=== PATIENT | male | born 1995 | race Caucasian/White ===

== ENCOUNTER 2018-07-05 04:35 | Emergency (ER) | payer BC, OTHER ==
--- NOTE | 2018-07-05 05:07 | EDM.PDOC ---
ED HPI GENERAL MEDICAL PROBLEM - General Chief Complaint: Chest Pain Stated Complaint: CHEST PAIN Time Seen by Provider: 07/05/18 04:50 Source of Information: Reports: Patient, RN Notes Reviewed - History of Present Illness INITIAL COMMENTS - FREE TEXT/NARRATIVE: 23-year-old male with achy discomfort left lateral chest off-and-on for the past week or so. Usually just lasts for a few seconds to up to maybe a half minute or so at a time. Not radiated to the shoulder or arm. He is not short of breath. No cough fever or chills. No known history for diabetes hypertension or heart problems. He does smoke but did quit just 3 days ago to see if that would help. When asked about caffeine he states he does work at [employer] and does drink a lot of caffeinated soda. Left Chest Pain Score (Numeric/FACES): 3 - Related Data Allergies Allergy/AdvReac Type Severity Reaction Status Date / Time amoxicillin Allergy Swollen Verified 07/05/18 04:40 Tongue cefaclor [From Ceclor] Allergy Swollen Verified 07/05/18 04:40 Tongue Home Meds: Home Meds . [No Known Home Meds] 07/05/18 [History] Past Medical History HEENT History: Reports: Impaired Vision Other HEENT History: Wears glasses Social & Family History - Tobacco Use Smoking Status *Q: Former Smoker Years of Tobacco use: 3 Packs/Tins Daily: 0.5 Used Tobacco, but Quit: Yes Month/Year Tobacco Last Used: 07/03/18 - Recreational Drug Use Recreational Drug Use: Yes Drug Use in Last 12 Months: No Recreational Drug Type: Reports: Cocaine Recreational Drug Use Frequency: Not Used In Over 6 Months ED ROS GENERAL - Review of Systems Review Of Systems: See Below Constitutional: Denies: Fever, Chills, Diaphoresis HEENT: Reports: No Symptoms Respiratory: Denies: Shortness of Breath, Cough Cardiovascular: Reports: Chest Pain GI/Abdominal: Denies: Abdominal Pain, Nausea, Vomiting Musculoskeletal: Denies: Neck Pain, Shoulder Pain, Arm Pain Skin: Reports: No Symptoms Neurological: Reports: No Symptoms ED EXAM, GENERAL - Physical Exam Exam: See Below General Appearance: Alert, No Apparent Distress Throat/Mouth: Normal Inspection Head: No: Facial Swelling Neck: Supple, Full Range of Motion Respiratory/Chest: No Respiratory Distress, Lungs Clear, Normal Breath Sounds, Chest Non-Tender Cardiovascular: Regular Rate, Rhythm, Systolic Murmur (Mild) Peripheral Pulses: 1+: Carotid (R), Brachial (L), Brachial (R), Radial (L), Radial (R), Femoral (L), Femoral (R), Popliteal (L), Popliteal (R), Posterior Tibial (L), Posterior Tibial (R), Dorsalis Pedis (L), Dorsalis Pedis (R) Extremities: Normal Inspection Neurological: Alert, Oriented, No Motor/Sensory Deficits Skin Exam: Warm, Dry, Normal Color Course - Vital Signs Last Recorded V/S: Last Vital Signs Temp 97.9 F 07/05/18 04:40 Pulse 95 07/05/18 04:40 Resp 20 07/05/18 04:40 BP 180/88 H 07/05/18 04:40 Pulse Ox 99 07/05/18 04:40 - Orders/Labs/Meds Orders: Active Orders 24 hr Category Date Time Status EKG Documentation Completion [RC] STAT Care 07/05/18 05:10 Active Departure - Departure Time of Disposition: 05:03 Disposition: Home, Self-Care 01 Condition: Fair Clinical Impression: Atypical chest pain Instructions: Nonspecific Chest Pain, [id number] Referrals: Ronny Lomeli MD [Primary Care Provider] - Forms: ED Department Discharge Additional Instructions: Continue to stop smoking, stop or at least strongly reduced her soda intake, try eat a healthy diet, consider regular exercise program. Cardiac echocardiogram has been ordered. The order has been sent to radiology, they will be calling you with the time to come in and get that done. Follow up with your regular medical provider or with a provider at our [facility] medical clinic in about 5-7 days for results. - My Orders Last 24 Hours: My Active Orders 07/05/18 05:10 EKG Documentation Completion [RC] STAT - Assessment/Plan Last 24 Hours: My Active Orders 07/05/18 05:10 EKG Documentation Completion [RC] STAT
== END 2018-07-05 05:10 | disposition home or self-care (01) ==
LOC: JD.ED 04:35
DX: R07.89 Other chest pain (principal); Z88.1 Allergy status to other antibiotic agents; Z88.8 Allergy status to other drugs, medicaments and biological substances; Z87.891 Personal history of nicotine dependence
CPT/HCPCS: 93005; 99285-25

== ENCOUNTER 2018-08-08 21:57 | Emergency (ER) | payer OTHER ==
--- NOTE | 2018-08-08 22:35 | EDM.PDOC ---
ED HPI GENERAL MEDICAL PROBLEM - General Chief Complaint: Chest Pain Stated Complaint: CHWEST PAIN Time Seen by Provider: 08/08/18 22:21 Source of Information: Reports: Patient, RN Notes Reviewed - History of Present Illness INITIAL COMMENTS - FREE TEXT/NARRATIVE: 23-year-old male comes in with nonspecific chest discomfort. He has been having discomfort off and on for about 6 weeks. He was evaluated here in the ED about 5 weeks ago. He was very concerned at that time because of the chest discomfort he was having an aware a of a young relative at around age 14 or 15, sudden unexpected apparently from some type of cardiac basis. He himself has no known history of cardiac disease. His EKG, XCR, exam were okay. Because of his symptoms at that time, etiology unclear echocardiogram was ordered. That did shirt turner to be negative, see that report for details. He is continued to have some intermittent achiness of the left chest over the past month. He has been exercising, lifting weights and is attributed the discomfort to that. This evening however he began having some additional anterior chest discomfort which he states is "different". He is not short of breath. He has noted some palpitations this evening. No abdominal pain nausea or vomiting. Epigastric Pain Score (Numeric/FACES): 4 - Related Data Allergies Allergy/AdvReac Type Severity Reaction Status Date / Time amoxicillin Allergy Swollen Verified 07/05/18 04:40 Tongue cefaclor [From Ceclor] Allergy Swollen Verified 07/05/18 04:40 Tongue Home Meds: Home Meds . [No Known Home Meds] 07/05/18 [History] Past Medical History HEENT History: Reports: Impaired Vision Other HEENT History: Wears glasses - Past Surgical History HEENT Surgical History: Reports: Myringotomy w Tube(s) Male Surgical History: Reports: Circumcision Social & Family History - Tobacco Use Smoking Status *Q: Current Every Day Smoker Years of Tobacco use: 6 Packs/Tins Daily: 6 - Caffeine Use Caffeine Use: Reports: Coffee, Soda - Recreational Drug Use Recreational Drug Use: Yes Recreational Drug Type: Reports: Marijuana/Hashish Recreational Drug Use Frequency: Daily ED ROS GENERAL - Review of Systems Review Of Systems: See Below Constitutional: Denies: Fever, Chills, Diaphoresis HEENT: Denies: Sinus Problem, Throat Pain Respiratory: Denies: Shortness of Breath, Pleuritic Chest Pain Cardiovascular: Reports: Chest Pain, Palpitations GI/Abdominal: Denies: Abdominal Pain, Nausea, Vomiting Musculoskeletal: Denies: Neck Pain, Shoulder Pain, Arm Pain, Back Pain Skin: Reports: No Symptoms Neurological: Reports: No Symptoms ED EXAM, GENERAL - Physical Exam Exam: See Below General Appearance: Alert, No Apparent Distress Eye Exam: Bilateral Eye: PERRL Throat/Mouth: Normal Inspection Head: Atraumatic Neck: Supple, Full Range of Motion Respiratory/Chest: No Respiratory Distress, Lungs Clear, Normal Breath Sounds, Chest Non-Tender Cardiovascular: Regular Rate, Rhythm GI/Abdominal: Soft, Non-Tender Back Exam: Vertebral Tenderness. No: CVA Tenderness (L), CVA Tenderness (R) Extremities: Normal Inspection. No: Leg Pain Neurological: Alert, Oriented, No Motor/Sensory Deficits Skin Exam: Warm, Dry, Normal Color EKG INTERPRETATION EKG Date: 08/09/18 Rhythm: NSR [place]: Normal P-Wave: Present QRS: Normal ST-T: Other (Mild flattening of T-wave in aVF, no significant ST elevation or depression) Course - Vital Signs Last Recorded V/S: Last Vital Signs Temp 100 F 08/08/18 22:08 Pulse 114 H 08/08/18 22:08 Resp 16 08/08/18 22:08 BP 160/77 H 08/08/18 22:08 Pulse Ox 99 08/08/18 22:08 - Orders/Labs/Meds Orders: Active Orders 24 hr Category Date Time Status EKG 12 Lead [EKG Documentation Completion] [RC] STAT Care 08/08/18 22:28 Active EKG 12 Lead [EKG Documentation Completion] [RC] STAT Care 08/08/18 22:46 Active Labs: Laboratory Tests 08/08/18 08/08/18 08/08/18 Range/Units 22:55 22:55 22:55 WBC 5.20 (4.23-9.07) K/mm3 RBC 5.21 (4.63-6.08) M/mm3 Hgb 15.7 (13.7-17.5) gm/L Hct 43.3 (40.1-51.0) % MCV 83.1 (79.0-92.2) fl MCH 30.1 (25.7-32.2) pg MCHC 36.3 H (32.2-35.5) g/dl RDW Std Deviation 37.1 (35.1-43.9) fL Plt Count 238 (163-337) K/mm3 MPV 10.9 (9.4-12.3) fl Neut % (Auto) 50.3 (34.0-67.9) % Lymph % (Auto) 38.1 (21.8-53.1) % Menard % (Auto) 10.4 (5.3-12.2) % Eos % (Auto) 1.0 (0.8-7.0) Baso % (Auto) 0.2 (0.1-1.2) % Neut # (Auto) 2.62 (1.78-5.38) K/mm3 Lymph # (Auto) 1.98 (1.32-3.57) K/mm3 [place] # (Auto) 0.54 (0.30-0.82) K/mm3 Eos # (Auto) 0.05 (0.04-0.54) K/mm3 Baso # (Auto) 0.01 (0.01-0.08) K/mm3 ESR 3 (0-15) mm/hr Sodium 140 (136-145) mEq/L Potassium 3.4 L (3.5-5.1) mEq/L Chloride 103 (98-107) mEq/L Carbon Dioxide 22 (21-32) mEq/L Anion Gap 18.4 H (5-15) BUN 16 (7-18) mg/dL Creatinine 1.2 (0.7-1.3) mg/dL Est Cr Clr Drug Dosing 111.31 mL/min Estimated GFR (MDRD) > 60 (>60) mL/min BUN/Creatinine Ratio 13.3 L (14-18) Glucose 123 H (74-106) mg/dL Calcium 9.5 (8.5-10.1) mg/dL Total Bilirubin 2.7 H (0.2-1.0) mg/dL AST 20 (15-37) U/L ALT 35 (16-63) U/L Alkaline Phosphatase 67 (46-116) U/L Total Protein 7.3 (6.4-8.2) g/dl Albumin 4.6 (3.4-5.0) g/dl Globulin 2.7 gm/dL Albumin/Globulin Ratio 1.7 (1-2) Free T4 (0.76-1.46) ng/dL TSH 3rd Generation 5.225 H (0.358-3.74) uIU/mL 08/08/18 Range/Units 22:55 WBC (4.23-9.07) K/mm3 RBC (4.63-6.08) M/mm3 Hgb (13.7-17.5) gm/L Hct (40.1-51.0) % MCV (79.0-92.2) fl MCH (25.7-32.2) pg MCHC (32.2-35.5) g/dl RDW Std Deviation (35.1-43.9) fL Plt Count (163-337) K/mm3 MPV (9.4-12.3) fl Neut % (Auto) (34.0-67.9) % Lymph % (Auto) (21.8-53.1) % Menard % (Auto) (5.3-12.2) % Eos % (Auto) (0.8-7.0) Baso % (Auto) (0.1-1.2) % Neut # (Auto) (1.78-5.38) K/mm3 Lymph # (Auto) (1.32-3.57) K/mm3 Menard # (Auto) (0.30-0.82) K/mm3 Eos # (Auto) (0.04-0.54) K/mm3 Baso # (Auto) (0.01-0.08) K/mm3 ESR (0-15) mm/hr Sodium (136-145) mEq/L Potassium (3.5-5.1) mEq/L Chloride (98-107) mEq/L Carbon Dioxide (21-32) mEq/L Anion Gap (5-15) BUN (7-18) mg/dL Creatinine (0.7-1.3) mg/dL Est Cr Clr Drug Dosing mL/min Estimated GFR (MDRD) (>60) mL/min BUN/Creatinine Ratio (14-18) Glucose (74-106) mg/dL Calcium (8.5-10.1) mg/dL Total Bilirubin (0.2-1.0) mg/dL AST (15-37) U/L ALT (16-63) U/L Alkaline Phosphatase (46-116) U/L Total Protein (6.4-8.2) g/dl Albumin (3.4-5.0) g/dl Globulin gm/dL Albumin/Globulin Ratio (1-2) Free T4 1.32 (0.76-1.46) ng/dL TSH 3rd Generation (0.358-3.74) uIU/mL - Re-Assessments/Exams Free Text/Narrative Re-Assessment/Exam: 08/09/18 04:19 CBC and chemistries normal, sedimentation rate was only 3 which rules out pericarditis. TSH was elevated mildly, T4 ordered, not back at time of discharge. Discharge instructions as documented. Departure - Departure Time of Disposition: 00:54 Disposition: Home, Self-Care 01 Condition: Fair Clinical Impression: Atypical chest pain, Chest wall pain Instructions: Chest Wall Pain, [id number], Nonspecific Chest Pain, Easy-to- Read Referrals: Ronny Lomeli MD [Primary Care Provider] - Forms: ED Department Discharge Additional Instructions: Avoid heavy lifting if that does cause discomfort for you, Advil or ibuprofen 600 mg 2 or 3 times daily if needed for discomfort, be sure to take that with food, he may take Tylenol once or twice a day in between doses of ibuprofen if needed for severe discomfort. Your lab work today shows that you are mildly dehydrated, be sure to drink plenty of water throughout the day. Your lab work this evening also shows that you may be mildly hypothyroid. An additional T4 level has been ordered, those results will be available for Dr. Walter when you see him next Tuesday. Also her echocardiogram done a couple of weeks ago was normal. Return to ED as needed if symptoms worsening in any way. - My Orders Last 24 Hours: My Active Orders 08/08/18 22:28 EKG 12 Lead [EKG Documentation Completion] [RC] STAT 08/08/18 22:46 EKG 12 Lead [EKG Documentation Completion] [RC] STAT - Assessment/Plan Last 24 Hours: My Active Orders 08/08/18 22:28 EKG 12 Lead [EKG Documentation Completion] [RC] STAT 08/08/18 22:46 EKG 12 Lead [EKG Documentation Completion] [RC] STAT
== END 2018-08-09 01:00 | disposition home or self-care (01) ==
LOC: JD.ED 21:57
DX: R07.89 Other chest pain (principal); F17.210 Nicotine dependence, cigarettes, uncomplicated; Z88.1 Allergy status to other antibiotic agents
CPT/HCPCS: 36415; 80053; 84439; 84443; 85025; 85652; 93005; 93010; 99284; 99285-25